=== PATIENT | female | born 1975 | race Caucasian/White ===

== ENCOUNTER 2024-03-28 10:03 | Emergency (ER) | payer BC ==
[2024-03-28 10:23] VITALS: BP 144/88; O2SAT 99
--- NOTE | 2024-03-28 11:26 | ED Physician Documentation ---
PD HPI LOWER EXT INJURY - Stated complaint Stated Complaint: LT TOE INJ - Chief complaint Chief Complaint: Trauma Ext - Additional information Additional information: 48-year-old female with no pertinent past medical history presents emergency department for pain to her left fourth toe. Patient says that she actually kicked the couch this morning and noticed that her toe was slightly angulated laterally. She has significant pain she says that she is worried about dislocation versus fracture. She has never injured this toe in the past no foot surgery in the past. She took 400 mg of ibuprofen this morning around 930 prior to arrival to the emergency department. PD PAST MEDICAL HISTORY - Past Medical History Past Medical History: No - Past Surgical History Past Surgical History: Yes - Present Medications Home Medications: Ambulatory Orders Medication Instructions Recorded Confirmed Home Medications Unobtainable 03/28/24 03/28/24 [HOME MEDICATIONS UNOBTAINABLE] - Allergies Allergies/Adverse Reactions: Allergies Allergy/AdvReac Type Severity Reaction Status Date / Time No Known Drug Allergies Allergy Verified 03/28/24 10:14 - Social History Does the pt smoke?: No Smoking Status: Never smoker Does the pt drink ETOH?: No Does the pt have substance abuse?: No - Immunizations Immunizations are current?: Yes PD ED PE NORMAL - Vitals Vital signs reviewed: Yes - General General: Alert and oriented X 3, No acute distress, Well developed/nourished - Derm Derm: Normal color, Warm and dry, No rash, Other (no echymosis) - Extremities Extremities: Other - Psych Psych: Normal mood - Free text exam Free text exam: Left foot: Full range of motion to all 5 toes with flexion extension left fourth toe tenderness with palpation no tenderness with palpation to the dorsal aspect of the foot where the bottom of the foot. CMS intact strong dorsalis pedis pulse. Left fourth toe is slightly angulated laterally towards fifth toe. Fifth and third toe are unaffected. Results - Vitals Vitals: Vital Signs - 24 hr 03/28/24 03/28/24 10:12 12:48 Temperature 36.5 C 36.5 C Heart Rate 86 86 Respiratory 16 16 Rate Blood Pressure 144/88 H 144/88 H O2 Saturation 99 99 - Rads (name of study) left foot xrays Relevant Findings:: Final report received, EMP independent interpretation of test, Other (Minimally displaced fracture of the fourth metatarsal.) PD Medical Decision Making - ED course ED course: 48-year-old female presents emergency department for left fourth toe pain differentials include but not limited to contusion, fracture, dislocation. Patient was offered Tylenol ibuprofen but she kindly declined icing for now and x-rays were pursued for further evaluation.X-rays confirm that she has a minimally displaced fracture of the proximal fourth phalanx. Lissette tape was utilized to tape the third and fourth toe together and she was put in a postop walking shoe. Patient was told to use a postop walking shoe for the next 6 weeks as well as lissette taped up with pain discomfort Tylenol ibuprofen for pain or discomfort and to follow-up with Ortho as needed but not entirely necessary. All questions answered patient was given crutches prior to leaving to help with ambulation and weightbearing patient safe for discharge at this time. Departure - Departure Disposition: 01 Home, Self Care Clinical Impression: Fracture of fourth toe, left, closed Instructions: Fx Finger Toe, ED Fx Toe Closed Follow-Up: Kush Noriega MD [Provider Admit Priv/Credential] - Comments: Thank you for trusting us with your care we have found that you have a fracture to your proximal fourth phalanx which is the fourth toe. We have placed in lissette tape to help with healing as well as a postop walking shoe continue to do this for the next 6 weeks follow-up with Ortho as needed let your primary care provider know that you were here in the ER you can take 1000 mg of Tylenol every 8 hours and 600 mg of ibuprofen every 6 hours for pain and discomfort. Apply ice for 20 minutes at a time 1 hour off use crutches as needed. Forms: PCP List Discharge Date/Time: 03/28/24 12:49
--- NOTE | 2024-03-28 12:18 | XRAY Report ---
PROCEDURE: Foot 3+V LT INDICATIONS: Trauma TECHNIQUE: 3 views of the foot were acquired. COMPARISON: None. FINDINGS: Bones: Comminuted fracture without intra-articular extension in the midportion of the fourth proximal phalanx. It demonstrates minimal displacement.. No suspicious bony lesions. Soft tissues: No tibiotalar joint effusion. Achilles tendon appears normal. IMPRESSION: Minimally displaced proximal fourth phalanx fracture. Reviewed by: Marnie Kuhn MD on 03/28/2024 12:16 PM PDT Approved by: Marnie Kuhn MD on 03/28/2024 12:16 PM PDT Station ID: [id number]
== END 2024-03-28 12:49 | disposition home or self-care (01) ==
LOC: ED 10:03
DX: S92.512A Displaced fracture of proximal phalanx of left lesser toe(s), initial encounter for closed fracture (principal); W22.09XA Striking against other stationary object, initial encounter; Y92.009 Unspecified place in unspecified non-institutional (private) residence as the place of occurrence of the external cause
CPT/HCPCS: 99283